=== PATIENT | female | born 1985 | race Two or more races ===

== ENCOUNTER 2019-05-11 01:39 | Emergency (ER) | payer SELFPAY ==
[~2019-05-11] VITALS: Ht 175.3 cm; Wt 108.9 kg
--- NOTE | 2019-05-11 01:50 | NUR ---
PT PRANEETH. AAOX4. AMBULATORY. PT C/O R EAR PRESSURE S/P SWIMMING SUNDAY NIGHT. PER PATIENT "I WAS TRYING TO GIVE MY BOYFRIEND A BLOW JOB UNDER THE WATER AND WATER GOT INTO MY EAR." PT C/O HAVING PRESSURE THAT IS MAKING HER RIGHT EYE BLURRY. UPON ASSESSMENT PT STATED HER RIGHT EYE HURTS WHEN SHE TRIES TO FOCUS ON AN OBJECT. PT DENIES PAIN AND N/V. PERRLA. PT DENIES LOOSING BALANCE WHEN WALKING. NO ACUTE DISTRESS NOTED. AWAITING MD FOR EVAL.
[2019-05-11] MEDS ORDERED: AMOXICILLIN TRIHYDRATE 250 MG CAPSULE ONE (02:25)
[2019-05-11] MEDS ORDERED: IBUPROFEN 600 MG TABLET PO ONE ×2 (02:26→02:30)
[2019-05-11] MEDS ORDERED: AMOXICILLIN TRIHYDRATE 250 MG CAPSULE PO ONE (02:30)
[2019-05-11 02:45] VITALS: BP 128/82
--- NOTE | 2019-05-11 02:45 | NUR ---
Patient discharged to home in stable condition. Written and verbal after care instructions given. Patient verbalizes understanding of instruction and RX. pt ambulatory with a steady gait.
== END 2019-05-11 02:45 | disposition home or self-care (01) ==
LOC: ER 01:41
DX: H60.91 Unspecified otitis externa, right ear (principal); J45.909 Unspecified asthma, uncomplicated; F32.9 Major depressive disorder, single episode, unspecified; E11.9 Type 2 diabetes mellitus without complications